=== PATIENT | female | born 1985 | race Caucasian/White ===

== ENCOUNTER 2018-12-28 03:28 | Inpatient (IN) | payer BC ==
[2018-12-31] MEDS ORDERED: Acetaminophen 500 MG TAB PO PRN (20:04)
[2018-12-31] MEDS ORDERED: Butorphanol Tartrate 1 MG/ML VIAL SLOW IVP PRN (20:04)
[2018-12-31] MEDS ORDERED: Ondansetron PF 4 MG/2 ML Vial IVP PRN (20:04)
[2018-12-31] MEDS ORDERED: Promethazine HCl 25 MG/ML VIAL IM PRN (20:04)
[2018-12-31] MEDS ORDERED: hydrALAZINE 20 MG/ML VIAL SLOW IVP PRN (20:04)
[2018-12-31] MEDS ORDERED: Lidocaine 1% (PF) 30 ML VIAL SC PRN (20:04)
[2018-12-31] MEDS ORDERED: NS / Oxytocin 40 units/1000ml 1,000 ML IV PRN (20:30)
[2018-12-31] MEDS ORDERED: NS w/ Oxytocin 10 units 500 ML IV SCH (20:30)
[2018-12-31] MEDS ORDERED: Penicillin G Potassium 5 MILL.UNITS in Sodium Chloride 0.9% 100 ML IVPB SCH (20:30)
[2018-12-31 21:04] LABS: Hemoglobin 11.1 g/dL (12.0-16.0); Mean Corpuscular HGB CONC 33.9 g/dL (32.0-36.0); Mean Corpuscular Hemoglobin 28.1 pg (27.0-31.0); Mean Corpuscular Volume 82.9 fL (78.0-98.0); Mean Platelet Volume 6.4 fL (7.4-10.4); Platelet Count 405 thou/uL (130-400); RBC Distribution Width 14.2 % (11.5-14.5); Red Blood Cell (RBC) Count 3.95 mill/uL (4.20-5.40); White Blood Cell (WBC) Count 13.9 thou/uL (4.8-10.8)
[2018-12-31] MEDS: Misoprostol 100 MCG TAB VAG SCH (21:33)
[2018-12-31 21:49] LABS: Syphilis Antibody Nonreactive (Nonreactive); Syphilis Antibody Index 0.03 S/CO (<1.00 Non-Reactive)
[2018-12-31 22:03] LABS: HBSAg Index 0.24 S/CO (0-0.99); Hep B Surf Ag Non-Reactive S/CO (NonReactive)
[2019-01-01] MEDS: Misoprostol 100 MCG TAB VAG SCH ×5 (00:18→19:30)
[2019-01-01] MEDS ORDERED: Penicillin G 2.5 MILL.units 2.5 MILL.UNITS in Premix Bag 1 BAG IVPB SCH (01:00)
[2019-01-01] MEDS ORDERED: CEFAZOLIN 2 GM in Premix Bag 1 BAG IVPB SCH (10:15)
[2019-01-01] MEDS ORDERED: Bicitra 30 ML UDCUP PO SCH (10:15)
--- NOTE | 2019-01-01 10:17 | PDOC.LDPN ---
Labor & Delivery Progress Note - Subjective Subjective: comfortable - Objective Vital signs reviewed and normal: yes General: NAD Uterine fundus: palpable contractions Dilation: 1 Effacement: 25% Station: -3 FHT: category 1 Other exam findings: post arom concerns for breech presentation noted. us performed. mika br AROM: clear fluid - Assessment (1) Breech presentation Code(s): O32.1XX0 - MATERNAL CARE FOR BREECH PRESENTATION, UNSP Current Visit : Yes Status: Acute Plan: other (jerry pt and dr noland. will proceed w primary cs to follow scheduled noon case )
[2019-01-01] MEDS ORDERED: MORPHINE 5 MG/10 ML PF VIAL ONE (14:29)
[2019-01-01] MEDS ORDERED: Oxytocin 10 UNITS/ML VIAL ONE ×2 (14:29→14:30)
[2019-01-01] MEDS ORDERED: Ondansetron PF 4 MG/2 ML Vial ONE ×2 (14:45→15:07)
[2019-01-01] MEDS ORDERED: Midazolam HCl 2 mg/2 ml Vial ONE (15:00)
--- NOTE | 2019-01-01 15:22 | PDOC.OPDEL ---
OB Operative/Delivery Note Delivery Dr/Surgeon: Tara Assist: Darrian Pre-Delivery Diagnosis: elective induction (Noted to be mika breech at time of aminotomy.) Procedure/Post Delivery Dx: primary low transverse CS Weeks gestation: 40 Anesthesia: spinal - Findings A Sex: female Weight: 9 lb 2 oz - 1 min: 9 - 5 min: 9 - Additional Findings/Plan Placenta delivered: manual removal Estimated blood loss: 500ml Post delivery plan: routine recovery
[2019-01-01] MEDS ORDERED: Promethazine HCl 25 MG/ML VIAL IM PRN ×2 (15:45→17:36)
[2019-01-01] MEDS ORDERED: Communication Order-Pharmacy FS SCH (15:45)
[2019-01-01] MEDS ORDERED: Promethazine HCl 25 MG SUPP PR PRN (15:45)
[2019-01-01] MEDS ORDERED: diphenhydrAMINE 50 MG/ML VIAL IVP PRN (15:45)
[2019-01-01] MEDS ORDERED: Naloxone HCl 0.4 mg/ml Vial IVP PRN ×2 (15:45)
[2019-01-01] MEDS ORDERED: Naloxone HCl 0.4 mg/ml Vial IV PRN (15:45)
[2019-01-01] MEDS ORDERED: Ondansetron PF 4 MG/2 ML Vial IVP PRN ×2 (15:45→17:36)
[2019-01-01] MEDS ORDERED: Ketorolac Tromethamine 30 MG/ML VIAL IVP PRN (15:45)
[2019-01-01] MEDS ORDERED: diphenhydrAMINE 25 MG CAP PO PRN (17:36)
[2019-01-01] MEDS ORDERED: HYDROcodone/Acetaminophen 5/325 mg Tablet PO PRN (17:36)
[2019-01-01] MEDS ORDERED: Zolpidem Tartrate 5 MG TAB PO PRN (17:36)
[2019-01-01] MEDS ORDERED: Adacel (T-DAP) 0.5 ML SYRINGE IM ONE (17:36)
[2019-01-01] MEDS ORDERED: Acetaminophen 325 MG TAB PO PRN (17:36)
[2019-01-01] MEDS ORDERED: Lanolin Ointment 7 GM TUBE TOP PRN (17:36)
[2019-01-01] MEDS ORDERED: NS / Oxytocin 40 units/1000ml 1,000 ML IV SCH (17:36)
[2019-01-01] MEDS ORDERED: hydrALAZINE 20 MG/ML VIAL SLOW IVP PRN (17:36)
[2019-01-01] MEDS ORDERED: Bisacodyl 10 MG SUPP PR PRN (17:36)
[2019-01-01] MEDS ORDERED: Meperidine HCl/PF 25 MG/ML VIAL IM PRN (17:36)
--- NOTE | 2019-01-01 17:48 | OP ---
DATE OF PROCEDURE: 01/01/2019 PREOPERATIVE DIAGNOSES: A 33-year-old white female, G2, P0, A1 at 41 weeks gestation, Cytotec induction with discovery of breech presentation at the time of amniotomy at 1 to 2 cm. POSTOPERATIVE DIAGNOSES: A 33-year-old white female, G2, P0, A1 at 41 weeks gestation, Cytotec induction with discovery of breech presentation at the time of amniotomy at 1 to 2 cm. PROCEDURE PERFORMED: Primary low transverse section. [employer] SURGEON: Tahir Colmenares MD, OB hospitalist. ANESTHESIA: Spinal block. ESTIMATED BLOOD LOSS: 500 mL. COMPLICATIONS: None. COUNTS: Correct x2. ANTIBIOTICS: 2 g Ancef, on-call to OR. FINDINGS: 1. Vigorous female infant, mika breech presentation, Apgars 9 and 9 with weight 9 pounds 2 ounces. 2. Normal-appearing uterus in uterine cavity, fallopian tubes, and ovaries. 3. Clear urine present in Her catheter postprocedure. DISPOSITION: Recovery room, stable. DESCRIPTION OF PROCEDURE: The patient previously received informed consent in regard to surgery. She was taken back to the operating room, where she received a spinal block without complications. She was prepped and draped in usual sterile fashion. Pfannenstiel incision was made in the lower abdomen, carried down to the fascia. Fascia was nicked in the midline. Fascial incision was extended bilaterally using curved Ramirez scissors. The fascia was then dissected sharply and bluntly off the rectus muscle bellies. The rectus muscle bellies divided in midline. Peritoneal cavity was entered. A large Dom O retractor was then placed and a 2 cm hysterotomy incision was made above the vesicouterine peritoneal reflection. This was extended via finger fractionation. The baby was then delivered, butt first and then each leg was atraumatically delivered and then a corkscrewing technique was utilized to deliver both arms atraumatically and along with flexion of the head by my psychologist research assistant externally, the head was delivered easily. The cord was then doubly clamped and cut after the baby's mouth and nares have been suctioned. The baby was then handed to pediatric team in attendance. The usual cord blood was obtained. Placenta was then manually extracted and uterus was externalized and curetted of any remaining placental fragments with a dry laparotomy sponge. Hysterotomy incision was then closed with a running locking #1 Monocryl suture x2. Hemostasis at the hysterotomy site was confirmed. The Dom O retractor was removed. Peritoneal cavity again was inspected, hemostasis was noted. The rectus muscle bellies were inspected prior to fascial closure. The fascia was closed with 0 PDS suture x2 in a running continuous fashion. Subcutaneous tissue was approximated with 3-0 running plain gut and skin was closed with naomy. The surgery was terminated with no anesthetic or surgical complications occurred. Job ID: [id number]
[2019-01-01] MEDS: Acetaminophen 1,000 MG in Premix Bag 1 BAG IVPB PRN (20:50)
[2019-01-01] MEDS: Simethicone Chewable 80 MG TAB PO PRN (20:53)
[2019-01-01] MEDS: Docusate Calcium (SURFAK) 240 MG CAP PO SCH (20:53)
[2019-01-01] MEDS ORDERED: Ibuprofen 800 MG TAB PO SCH (22:00)
[2019-01-01] MEDS: Ketorolac Tromethamine 30 MG/ML VIAL IVP SCH (23:42)
[2019-01-02] MEDS: Acetaminophen 1,000 MG in Premix Bag 1 BAG IVPB PRN (05:19)
[2019-01-02] MEDS: Ketorolac Tromethamine 30 MG/ML VIAL IVP SCH ×3 (05:29→17:02)
[2019-01-02 05:46] LABS: Hemoglobin 8.4 g/dL (12.0-16.0); Mean Corpuscular HGB CONC 32.9 g/dL (32.0-36.0); Mean Corpuscular Hemoglobin 28.1 pg (27.0-31.0); Mean Corpuscular Volume 85.3 fL (78.0-98.0); Mean Platelet Volume 6.1 fL (7.4-10.4); Platelet Count 293 thou/uL (130-400); RBC Distribution Width 14.4 % (11.5-14.5); Red Blood Cell (RBC) Count 2.99 mill/uL (4.20-5.40); White Blood Cell (WBC) Count 11.7 thou/uL (4.8-10.8)
[2019-01-02] MEDS: Prenatal Vitamin 1 TAB PO SCH (08:33)
[2019-01-02] MEDS: Docusate Calcium (SURFAK) 240 MG CAP PO SCH ×2 (08:33→21:45)
[2019-01-02] MEDS: Simethicone Chewable 80 MG TAB PO PRN ×4 (08:49→21:45)
[2019-01-02] MEDS ORDERED: Sodium Chloride 0.9% 10 ML ONE (10:32)
[2019-01-02] MEDS: Ibuprofen 800 MG TAB PO SCH ×2 (13:41→21:45)
[2019-01-02] MEDS: HYDROcodone/Acetaminophen 5/325 mg Tablet PO PRN ×2 (15:39→19:57)
[2019-01-02] MEDS ORDERED: [UNRECOGNIZED DRUG - REMARK] FS SCH (17:30)
[2019-01-02] MEDS ORDERED: Ferrous Sulfate 325 MG TAB PO SCH (18:15)
[2019-01-03] MEDS: HYDROcodone/Acetaminophen 5/325 mg Tablet PO PRN ×6 (01:12→22:48)
--- NOTE | 2019-01-03 01:15 | PDOC.PP ---
Post Progress Note Post Day #: POD2 Subjective: Resting comfortably. No complaints. PO intake tolerated: yes Flatus: no Ambulation: yes Vital Signs (12 hours) Temp Pulse Resp BP Pulse Ox 01/02/19 23:25 98.7 F 87 16 111/59 L 01/02/19 20:00 98.3 F 90 16 128/58 L 98 01/02/19 17:16 98.0 F 94 18 130/63 01/02/19 16:28 98.0 F 93 20 119/60 Weight Weight 220 g - Physical Examination General: NAD Respiratory: non-labored breathing Abdominal: no distention Skin: CS incision dry & intact Psychiatric: normal affect Result Diagrams: 01/02/19 05:30 Additional Labs: Post Labs Blood Type O POSITIVE 12/31/18 21:19 Hep Bs Antigen Non-Reactive S/CO (NonReactive) 12/31/18 20:53 - Assessment/Plan Advance diet. Ambulate hallway. Anticipate DC on 01/04/19
[2019-01-03] MEDS: Ibuprofen 800 MG TAB PO SCH ×3 (05:15→21:19)
[2019-01-03] MEDS: Ferrous Sulfate 325 MG TAB PO SCH (07:48)
[2019-01-03] MEDS: Simethicone Chewable 80 MG TAB PO PRN ×2 (07:48→17:31)
[2019-01-03] MEDS: Prenatal Vitamin 1 TAB PO SCH (07:48)
[2019-01-03] MEDS: Docusate Calcium (SURFAK) 240 MG CAP PO SCH ×2 (07:48→21:19)
[2019-01-04] MEDS: HYDROcodone/Acetaminophen 5/325 mg Tablet PO PRN ×3 (02:52→11:26)
[2019-01-04] MEDS: Ibuprofen 800 MG TAB PO SCH ×2 (05:30→13:43)
--- NOTE | 2019-01-04 07:39 | PDOC.PP ---
Post Progress Note Post Day #: 3 PO intake tolerated: yes Flatus: yes Ambulation: yes Vital Signs (12 hours) Temp Pulse Resp BP Pulse Ox 01/03/19 20:00 98.7 F 86 16 122/72 98 Weight Weight 7.76 oz - Physical Examination Abdominal: + bowel sounds, lochia, no distention, appropriately TTP Result Diagrams: 01/02/19 05:30 Additional Labs: Post Labs Blood Type O POSITIVE 12/31/18 21:19 Hep Bs Antigen Non-Reactive S/CO (NonReactive) 12/31/18 20:53 - Assessment/Plan Post op day 3..primary d/c for breech presentation...Doing well. D/c home. Meno out post op day 7..
[2019-01-04] MEDS: Docusate Calcium (SURFAK) 240 MG CAP PO SCH (08:13)
[2019-01-04] MEDS: Ferrous Sulfate 325 MG TAB PO SCH (08:13)
[2019-01-04] MEDS: Simethicone Chewable 80 MG TAB PO PRN (08:13)
[2019-01-04] MEDS: Prenatal Vitamin 1 TAB PO SCH (08:14)
[2019-01-04 11:18] VITALS: BP 117/61; TEMP 98.4
== END 2019-01-04 14:25 | disposition home or self-care (01) | DRG 788 ==
LOC: L&D 12-31 19:33 → 3SW 01-01 17:56
PROVIDERS: ADMIT Obstetrics & Gynecology; ATTEND Obstetrics & Gynecology
PROC: 10D00Z1 Extraction of Products of Conception, Low, Open Approach (ICD-10-PCS; principal; 2019-01-01)
PROC: 3E0P7VZ Introduction of Hormone into Female Reproductive, Via Natural or Artificial Opening (ICD-10-PCS; 2019-01-01)
DX: O32.8XX0 Maternal care for other malpresentation of fetus, not applicable or unspecified (principal); O99.824 Streptococcus B carrier state complicating childbirth; Z3A.40 40 weeks gestation of pregnancy; Z37.0 Single live birth
CPT/HCPCS: 36415; 51702; 76815; 85027; 86780; 86850; 86900; 86901; 87340; J0131; J0690; J1885; J2250; J2274; J2310; J2405; J2590